=== PATIENT | female | born 1960 | race Caucasian/White ===

== ENCOUNTER 2018-04-26 18:23 | Emergency (ER) | payer OTHER ==
[~2018-04-26] VITALS: Ht 157.5 cm; Wt 69.4 kg
[2018-04-26 18:31] VITALS: Ht 157.5 cm; Wt 69.4 kg
--- NOTE | 2018-04-26 19:10 | ERD ---
ER Documentation Chief Complaint Chief Complaint htn at home, c/o headache. denies cp or sob HPI 57-year-old female who presents to the emergency room with headache and hypertension. No history of hypertension. The patient states that she was called into work and they were short she was extremely stressed and started to feel her blood pressure become elevated. She has an burning occipital headache that is gradual in onset, 5 out of 10. She denies any jaw pain, nausea or vomiting, diaphoresis or chest pressure. During the patient's encounter translation services were utilized Language: Kiswahili Source: In person ROS All systems reviewed and are negative except as per history of present illness. Allergies Allergies: Coded Allergies: No Known Drug Allergies (Verified Allergy, Unknown, 04/26/18) FmHx Family History: No diabetes Physical Exam Vitals Vital Signs Date Temp Pulse Resp B/P (MAP) Pulse Ox O2 O2 Flow FiO2 Time Delivery Rate 04/26/18 71 21 171/79 99 Room Air 19:23 (109) 04/26/18 98.5 77 18 191/104 97 18:31 (133) Physical Exam General: Well developed, well nourished, no acute distress Head: Normocephalic, atraumatic. Eyes: Pupils equally reactive, EOM intact ENT: Moist mucous membranes Neck: Supple, no lymphadenopathy Respiratory: Lungs clear bilaterally, no distress Cardiovascular: RRR, no murmurs, rubs, or gallops Abdominal: Soft, non-tender, non-distended, no peritoneal signs : Deferred MSK: No edema, no unilateral swelling, 5/5 strength Neurologic: Alert and oriented, moving all extremities, normal speech, no focal weakness, no cerebellar signs Skin: No rash Psych: Normal mood Procedures/MDM EKG, MONITORS, & DIAGNOSTIC IMAGING: CT brain: IMPRESSION: 1. No acute intracranial hemorrhage, transcortical infarction or mass effect. 2. Mild intracranial atherosclerosis and chronic small vessel ischemic changes. 3. Partially empty sella turcica. 4. Mild generalized cerebral volume loss. RPTAT: MEDICAL DECISION MAKING: The patient's clinical exam presentation is consistent with hypertensive urgency in the setting of stressful event. Her headache exhibits no concerning signs or symptoms concerning for intracranial hemorrhage. No evidence of dissection. CT of the brain would be appropriate. The patient does not have a known diagnosis of hypertension. She was advised to keep a blood pressure log at home and follow-up with her primary care physician. She has an appointment in 2 weeks. No chest pain or anginal equivalent that would warrant EKG or troponin. The patient will be observed and if no improvement of her blood pressure p.o. Cardene would be appropriate. No indication for rapidly lowering with IV me dications at this time. ER COURSE: * Blood pressure improved with 20% reduction in mean arterial pressure. No indication to actively treat this patient. This was spontaneous improvement. * CT brain negative * Motrin provided * The patient can be safely discharged at this time. No indication to rapidly lowering blood pressure. * I do not believe the patient requires initiation of antihypertensive medication because the patient had a clear stressful trigger. I do recommend keeping a blood pressure log and following up with primary care physician for further evaluation of essential hypertension. CONSULTATION: [None] DISPOSITION PLAN: The patient does not have an identifiable emergent medical condition that warrants inpatient hospitalization at this time. The patient is deemed safe for discharge with outpatient follow-up. We discussed follow up with the patient's primary care doctor within 24 to 48 hours as needed. We also discussed return to the emergency room for worsening symptoms or worsening condition. Outpatient referral: [None required] Discharge Medications: None required Departure Diagnosis: Primary Impression: Hypertensive urgency Condition: Stable BOBO FRANCE MD Apr 26, 2018 19:10
[2018-04-26] MEDS ORDERED: MELO15TA30 PO (19:26)
[2018-04-26] MEDS ORDERED: IBUPROFEN 600 MG TAB PO ONE (19:30)
[2018-04-26 20:15] VITALS: BP 161/84; PULSE 67; RESP 23
== END 2018-04-26 20:18 | disposition home or self-care (01) ==
LOC: E/R 18:23
DX: I16.0 Hypertensive urgency (principal); R40.2252 Coma scale, best verbal response, oriented, at arrival to emergency department; R40.2362 Coma scale, best motor response, obeys commands, at arrival to emergency department; R40.2142 Coma scale, eyes open, spontaneous, at arrival to emergency department; I10 Essential (primary) hypertension
CPT/HCPCS: 70450

== ENCOUNTER 2018-08-21 16:34 | Emergency (ER) | payer OTHER ==
[~2018-08-21] VITALS: Wt 76.0 kg
[~2018-08-21 16:34] MED LIST: MELO15TA30 PO
[2018-08-21 16:38] VITALS: RESP 18
--- NOTE | 2018-08-21 17:02 | ERD ---
ER Documentation Chief Complaint Chief Complaint li.sore throat since yesterday, hx htn HPI 57-year-old female, with history of hypertension, presents to the emergency department, complaining of acute onset of headache, associated with elevated blood pressure after having a verbal altercation with her boss at work today. The patient reports feeling as stressed at work, she denies distal weakness, numbness or tingling, no blurred vision, no facial asymmetry. ROS All systems reviewed and are negative except as per history of present illness. Medications Home Meds Active Scripts Acetaminophen* (Tylenol*) 325 Mg Tablet, 2 TAB PO Q6 PRN for PAIN AND OR ELEVATED TEMP, #20 TAB Prov:VERA GILMORE MD 08/21/18 Lorazepam* (Ativan*) 0.5 Mg Tablet, 0.5 MG PO QHS PRN for ANXIETY, #10 TAB Prov:VERA GILMORE MD 08/21/18 Reported Medications Meloxicam* (Mobic*) 15 Mg Tablet, 15 MG PO DAILY, #30 TAB 04/26/18 Allergies Allergies: Coded Allergies: No Known Drug Allergies (Verified Allergy, Unknown, 04/26/18) PMhx/Soc Hypertension Hx Alcohol Use: No Hx Substance Use: No Hx Tobacco Use: No FmHx Family History: No diabetes, No coronary disease Physical Exam Vitals Vital Signs Date Temp Pulse Resp B/P (MAP) Pulse Ox O2 O2 Flow FiO2 Time Delivery Rate 08/21/18 98.1 87 18 172/83 99 16:38 (112) Physical Exam Const: No acute distress Head: Atraumatic Eyes: Normal Conjunctiva ENT: Normal External Ears, Nose and Mouth. Neck: Full range of motion. No meningismus. Resp: Clear to auscultation bilaterally Cardio: Regular rate and rhythm, no murmurs Abd: Soft, non tender, non distended. Normal bowel sounds Skin: No petechiae or rashes Back: No midline or flank tenderness Ext: No cyanosis, or edema Neur: Awake and alert Psych: Normal Mood and Affect Results 24 hrs Current Medications Medications Dose Sig/Clem Start Time Status Last (Trade) Ordered Route PRN Stop Time Admin Dose Reason Admin Lorazepam 0.5 mg ONCE ONCE 08/21/18 DC 08/21/18 (Ativan) PO 17:30 08/21/18 17:21 17:31 Procedures/MDM Vital signs stable, Physical exam unremarkable, neurovascular exam intact. Differential diagnosis include but not limited to: Classical migraine, sinusitis, visual corrective problems, side effects of medications, dehydration, electrolyte imbalance, endocrine/autoimmune medical condition, stress, anxiety, tension headache. Low suspicion for meningitis, [employer] tumor, cerebrovascular event. Physical examination and clinical presentation consistent most likely with tension headache. During the ED course the patient remained stable, no new complaints. Results and clinical impression discussed with patient who agrees with management. The patient is stable to be treated outpatient and will be discharged home, some side effects of prescribed medications (headache, rash, nausea, vomiting, diarrhea, drowsiness, habituation, bleeding, hypertension, interactions with other medications) were reviewed. Follow up with the primary care provider in the next 48h has been recommended. If symptoms persist, worsen or new symptoms develop, then patient should return to the ED immediately. Instructions explained and given directly by me to the patient with acknowledgment and demonstrated understanding. Disclaimer: Inadvertent spelling and grammatical errors are likely due to EHR/dictation software use and do not reflect on the overall quality of patient care. Also, please note that the electronic time recorded on this note does not necessarily reflect the actual time of the patient encounter. Departure Diagnosis: Primary Impression: Headache Additional Impressions: Work-related stress Hypertension Condition: Stable Patient Instructions: Self-Care for Headaches, High Blood Pressure (Hypertension) Additional Instructions: Muchas john por [facility] para krishna servicio. Esperamos que en krishna visita a la augusta de emergencia krishna problema medico haya sido solucionado y que se sienta mucho mejor. Para estar seguros que krishna mejoria sigue en proceso, le pedimos el favor de hacer tess shauna de seguimiento medico con krishna doctor primario en los proximos 2-4 cummings. Lleve con usted estos documentos y las medicinas recetadas. Si gorge sintomas empeoran, NO SE ESPERE, por favor regrese a augusta de emergencia INMEDIATAMENTE. En leon que usted no tenga un mdico de atencin primaria: Llame al mdico o clnica comunitaria de referencia que aparece abajo brian las horas de consultorio para hacer tess shauna para que le vean. CLINICAS: [facility] [phone] [facility] [phone] [id number] [facility] [phone] [address] [place] [phone] [place] [id number] [phone] [facility] [phone] VERA HERNANDEZ MD August 21, 2018 17:01
[2018-08-21] MEDS ORDERED: ACET325T33 PO (17:16)
[2018-08-21] MEDS ORDERED: LORA-441 PO (17:16)
[2018-08-21] MEDS ORDERED: LORAZEPAM 0.5 MG TAB PO ONE (17:30)
[2018-08-21 17:42] VITALS: BP 163/78; PULSE 77
== END 2018-08-21 18:43 | disposition home or self-care (01) ==
LOC: FTE 16:34
DX: I10 Essential (primary) hypertension (principal); Z56.3 Stressful work schedule
CPT/HCPCS: 99283